=== PATIENT | female | born 1980 | race Caucasian/White ===

== ENCOUNTER 2016-09-22 16:27 | Emergency (ER) | payer OTHER ==
[2016-09-22 16:34] VITALS: BP 113/72; PULSE 94; RESP 20; TEMP 98.1
--- NOTE | 2016-09-22 17:51 | XR ---
EXAMINATION TYPE: XR hand complete RT DATE OF EXAM: 09/22/2016 5:47 PM COMPARISON: NONE HISTORY: Hand through glass window wall opening laceration base of thumb TECHNIQUE: 3 view right hand FINDINGS: No acute osseous abnormality is evident. There is a laceration at the carpal level at the b ase of the thumb. No radiopaque foreign bodies are evident. IMPRESSION: 1. Laceration base carpal level. No radiopaque foreign body evident. 2. Normal osseous structures.
--- NOTE | 2016-09-22 17:58 | ED ---
Wound/Laceration HPI - General Chief Complaint: Wound/Laceration Stated Complaint: Laceration on Right Hand Time Seen by Provider: 09/22/16 17:11 Source: patient, RN notes reviewed, old records reviewed Mode of arrival: ambulatory Limitations: no limitations - History of Present Illness Initial Comments: Physical 36-year-old female with chief complaint of right hand laceration. Patient reports that she was trying to open up her window in the hand got cut on the glass and would from the window. Patient states that her tetanus is up- to-date. Patient states that she is right-handed. She does have full range of motion. Denies any wrist pain or finger pain. Patient denies any recent fever, chills, shortness of breath, chest pain, back pain, abdominal pain, nausea vomiting, numbness or tingling, dysuria or hematuria, constipation or diarrhea, headaches or visual changes, or any other current symptoms - Related Data Home Medications Medication Instructions Recorded Confirmed Fluticasone Propionate [Flonase 1 spray EA NOSTRIL DAILY 09/07/15 09/22/16 Allergy Relief] Ibuprofen [Motrin] 800 mg PO Q8HR PRN 09/07/15 09/22/16 Loratadine [Claritin] 10 mg PO DAILY 09/07/15 09/22/16 Allergies Allergy/AdvReac Type Severity Reaction Status Date / Time No Known Allergies Allergy Verified 09/22/16 18:42 Review of Systems ROS Statement: Those systems with pertinent positive or pertinent negative responses have been documented in the HPI. ROS Other: All systems not noted in ROS Statement are negative. Past Medical History Past Medical History: Seizure Disorder History of Any Multi-Drug Resistant Organisms: None Reported Past Surgical History: Tubal Ligation Past Psychological History: No Psychological Hx Reported Smoking Status: Current every day smoker Past Alcohol Use History: Rare Past Drug Use History: None Reported General Exam - General Exam Comments Initial Comments: This is a 36-year-old female. No acute distress. Limitations: no limitations General appearance: alert, in no apparent distress Head exam: Present: atraumatic, normocephalic, normal inspection Eye exam: Present: normal appearance, PERRL, EOMI. Absent: scleral icterus, conjunctival injection, periorbital swelling ENT exam: Present: normal exam, mucous membranes moist Neck exam: Present: normal inspection. Absent: tenderness, meningismus, lymphadenopathy Respiratory exam: Present: normal lung sounds bilaterally. Absent: respiratory distress, wheezes, rales, rhonchi, stridor Cardiovascular Exam: Present: regular rate, normal rhythm, normal heart sounds. Absent: systolic murmur, diastolic murmur, rubs, gallop, clicks GI/Abdominal exam: Present: soft, normal bowel sounds. Absent: distended, tenderness, guarding, rebound, rigid Extremities exam: Present: normal inspection, full ROM, normal capillary refill. Absent: tenderness, pedal edema, joint swelling, calf tenderness Right Elbow exam: Present: normal inspection, full ROM Forearm Wrist exam: Present: normal inspection, full ROM Hand Wrist exam: Present: full ROM, laceration (4 cm laceration at the base of the hand near the thumb.). Absent: normal inspection Neuro motor exam: Present: wrist extension intact, thumb opposition intact, thumb IP flexion intact, thumb adduction intact, fingers 2-5 abduction intact Vascular: Present: normal capillary refill Back exam: Present: normal inspection Neurological exam: Present: alert, oriented X3, CN II-XII intact Psychiatric exam: Present: normal affect, normal mood Skin exam: Present: warm, dry, intact, normal color. Absent: rash Course Vital Signs 09/22/16 16:32 Temperature 98.1 F Pulse Rate 94 Respiratory 20 Rate Blood Pressure 113/72 O2 Sat by Pulse 99 Oximetry Procedures - Laceration Laceration #1 Indication: laceration Site: hand Size (cm): 5 Description: flap Depth: simple, single layer Anesthetic Used: benzocaine 0.25% Anesthesia Technique: local infiltration, nerve block Amount (mls): 4 Pre-repair: wound explored, irrigated extensively Type of Sutures: nylon Size of Sutures: 5-0 Number of Sutures: 7 Technique: simple, interrupted Patient Tolerated Procedure: well, no complications Medical Decision Making - Medical Decision Making This is a 36-year-old female presenting to emergency Department with chief complaint of right hand laceration of her trying to open a window. Patient's laceration is superficial. No tendon involvement. Patient has full range of motion of the hand. She is right-handed. She reports her tetanus is up-to- date. Patient's hand was soaked and cleaned and soapy water. Patient received sutures, wound was well approximated. Discussed return parameters including signs of infection like redness drainage or swelling. Patient agrees to treatment plan will comply. Also discussed with the patient that she needs to keep the area clean and return to emergency department have her sutures removed in approximately 10 days. Disposition Clinical Impression: Hand laceration Disposition: HOME SELF-CARE Condition: Good Instructions: Laceration (ED) Additional Instructions: Please return to the emergency room in 8-10 days to have sutures removed. Please leave wound covered for the first 24-48 hours and then leave open to air after that time. Please use clean soap and water to clean the suture area to prevent scabbing over the top of your sutures. Please watch for any signs of infection which may include but not limited to increased pain, swelling, redness , fever or chills. Please return to the emergency room if any signs of infection do occur. Please return to the emergency room for any other concerns or complications. Referrals: Roberto Flores MD [Primary Care Provider] - 1-2 days Time of Disposition: 17:57
== END 2016-09-22 18:55 | disposition home or self-care (01) ==
LOC: EC 16:27
DX: S61.411A Laceration without foreign body of right hand, initial encounter (principal); G40.909 Epilepsy, unspecified, not intractable, without status epilepticus; F17.200 Nicotine dependence, unspecified, uncomplicated; Z79.52 Long term (current) use of systemic steroids; Z79.899 Other long term (current) drug therapy; W25.XXXA Contact with sharp glass, initial encounter
CPT/HCPCS: 12002; 99283

== ENCOUNTER → 2017-10-02 | Outpatient (CLI) | payer OTHER ==
--- NOTE | 2017-10-02 10:03 | MR ---
EXAMINATION TYPE: MR lumbar spine wo con DATE OF EXAM: 10/02/2017 COMPARISON: NONE HISTORY: Low back pain TECHNIQUE: Multiplanar, multisequence images of the lumbar spine were acquired. TECHNIQUE: The lumbar spine vertebral bodies maintain normal vertebral body height and alignment. Bone marrow si gnal is within normal limits. Conus medullaris is unremarkable terminating at L1-L2. Paraspinal muscl es are unremarkable. L1-L2: Normal disc appearance without desiccation. No herniation, protrusion or disc bulging. No ca nal stenosis is present. Foramina are patent bilaterally. L2-L3: Normal disc appearance without desiccation. No herniation, protrusion or disc bulging. No ca nal stenosis is present. Foramina are patent bilaterally. L3-L4: Normal disc appearance without desiccation. No herniation, protrusion or disc bulging. No ca nal stenosis is present. Foramina are patent bilaterally. L4-L5: There is small disc bulge is seen as there is flattening of the usual disc concavity posterior ly. No spinal canal stenosis or neural foraminal narrowing. No significant disc desiccation. L5-S1: Normal disc appearance without desiccation. No herniation, protrusion or disc bulging. No ca nal stenosis is present. Foramina are patent bilaterally. IMPRESSION: 1. No evidence of bone marrow edema, fracture, or malalignment of the lumbar spine. 2. No focal disc herniation or spinal canal stenosis. 3. Small disc bulge at L4-L5 without neural foraminal narrowing or spinal canal stenosis.
== END | disposition home or self-care (01) ==
LOC: RADMRIMAIN 08:13
PROVIDERS: ATTEND Psychiatry & Neurology Neurology
DX: M51.26 Other intervertebral disc displacement, lumbar region (principal); Z88.8 Allergy status to other drugs, medicaments and biological substances
CPT/HCPCS: 72148

== ENCOUNTER 2017-11-22 17:32 | Emergency (ER) | payer OTHER ==
[2017-11-22 17:41] VITALS: TEMP 98
--- NOTE | 2017-11-22 18:07 | ED ---
General Adult HPI - General Source: patient, RN notes reviewed Mode of arrival: ambulatory Limitations: no limitations <Aurelia Vincent - Last Filed: 11/22/17 20:50> <Nj Pierre - Last Filed: 11/26/17 17:36> - General Chief complaint: Back Pain/Injury Stated complaint: kidney pain Time Seen by Provider: 11/22/17 17:56 - History of Present Illness Initial comments: This is a 37-year-old female who presents to the emergency department with chief complaint of "kidney pain." Patient states that on Saturday she developed right-sided flank pain and on Saturday it progressed to the left side. Patient states that on Saturday her whole body hurt. She describes the pain as constant and stabbing. Denies any fevers or chills, nausea or vomiting, diarrhea or constipation. Denies any abdominal pain. Denies chest pain or shortness of breath. Denies any recent falls, injury or trauma. Denies dysuria , increased frequency or hematuria. (Aurelia Vincent) - Related Data Home Medications Medication Instructions Recorded Confirmed Ibuprofen [Motrin] 800 mg PO Q8HR PRN 09/07/15 11/22/17 Previous Rx's Medication Instructions Recorded Sulfamethox-Tmp 800-160Mg [Bactrim 1 tab PO Q12HR #28 tab 11/22/17 DS 800-160 mg] Allergies Allergy/AdvReac Type Severity Reaction Status Date / Time Opioids - Morphine Analogues AdvReac Unknown Verified 11/22/17 18:20 Review of Systems ROS Other: All systems not noted in ROS Statement are negative. <Aurelia Vincent - Last Filed: 11/22/17 20:50> ROS Other: All systems not noted in ROS Statement are negative. <Nj Pierre - Last Filed: 11/26/17 17:36> ROS Statement: Those systems with pertinent positive or pertinent negative responses have been documented in the HPI. Past Medical History Past Medical History: Seizure Disorder History of Any Multi-Drug Resistant Organisms: None Reported Past Surgical History: Tubal Ligation Past Psychological History: No Psychological Hx Reported Smoking Status: Current every day smoker Past Alcohol Use History: Rare Past Drug Use History: None Reported <Aurelia Vincent - Last Filed: 07/06/18 20:50> General Exam Limitations: no limitations <Aurelia Vincent - Last Filed: 11/22/17 20:50> <Nj Pierre - Last Filed: 11/26/17 17:36> - General Exam Comments Initial Comments: General: Awake and alert, well-developed; in no apparent distress. HEENT: Head atraumatic, normocephalic. Pupils are equal, round and reactive to light. Extraocular movements intact. Oropharynx moist without erythema or exudate. Neck: Supple. Normal ROM. Cardiovascular: Regular rate and rhythm. No murmurs, rubs or gallops. Chest symmetrical. Respiratory: Lungs clear to auscultation bilaterally. No wheezes, rales or rhonchi. Normal respiratory effort with no use of accessory muscles. Abdomen: Soft, non-tender, non-distended. No rigidity, rebound or guarding. Normal bowel sounds in all 4 quadrants. Bilateral CVA tenderness >right. Musculoskeletal: Normal ROM, no tenderness bilateral upper and lower extremities. Ambulating normally. Skin: [place], warm and dry without rashes or lesions. Neurological: Alert and oriented x3. CN II-XII grossly intact. Speech is fluent and answers are appropriate. No focal neuro deficits. Psychiatric: Normal mood and affect. No overt signs of depression or anxiety noted. (Aurelia Vincent) Vital Signs 11/22/17 11/22/17 17:39 20:18 Temperature 98.0 F Pulse Rate 108 H 91 Respiratory 18 17 Rate Blood Pressure 95/60 109/57 O2 Sat by Pulse 100 100 Oximetry Medical Decision Making - Lab Data Result diagrams: 11/22/17 18:25 11/22/17 18:25 - Radiology Data Radiology results: report reviewed <Aurelia Vincent - Last Filed: 11/22/17 20:50> - Lab Data Result diagrams: 11/22/17 18:25 11/22/17 18:25 <Nj Pierre - Last Filed: 11/26/17 17:36> - Medical Decision Making This is a 37-year-old female who presented to the emergency department with chief complaint of bilateral flank pain. Patient states that she has had "kidney pain" since Saturday. Patient denies fevers or chills, nausea or vomiting , diarrhea or constipation. She denies any abdominal pain. UA revealed positive nitrates, large leukocyte esterase, 129 white blood cells and few white blood cell clumps. Patient will be treated for cystitis. Given a dose of Rocephin in the emergency department. CMP revealed a potassium at 2.9. Patient was given oral supplementation. BUN was elevated at 25 and patient had a creatinine at 1.9. She was given a liter bolus of fluids. Computed tomography scan of the abdomen and pelvis without contrast was obtained and revealed evidence for acute pyelonephritis. Recommended admission for acute kidney injury and IV antibiotics, however patient declines. She states that she wants to be discharged home and will take oral antibiotics. Strict return parameters were discussed including nausea or vomiting, fevers or chills or increase in pain. Patient will be started on Bactrim for the next 14 days. Vital signs are stable and patient is in no acute distress. Patient will be discharged home at this time. All questions answered. (Aurelia Vincent) Resident/PA attestation: I, Dr. Nj Pierre, personally saw and examined the patient. I have reviewed and agree with the resident/PA findings, including all diagnostic interpretations and treatment plans as written unless otherwise stated. I was present for the ruiz portions of any procedures performed and inclusive time noted for any critical care statement. (Nj Pierre) - Lab Data Lab Results 11/22/17 11/22/17 11/22/17 Range/Units 18:25 18:25 18:25 WBC 12.9 H (3.8-10.6) k/uL RBC 3.96 (3.80-5.40) m/uL Hgb 12.1 (11.4-16.0) gm/dL Hct 36.5 (34.0-46.0) % MCV 92.0 (80.0-100.0) fL MCH 30.6 (25.0-35.0) pg MCHC 33.2 (31.0-37.0) g/dL RDW 13.3 (11.5-15.5) % Plt Count 150 (150-450) k/uL Neutrophils % 90 % Lymphocytes % 4 % Monocytes % 4 % Eosinophils % 1 % Basophils % 0 % Neutrophils # 11.6 H (1.3-7.7) k/uL Lymphocytes # 0.5 L (1.0-4.8) k/uL Monocytes # 0.6 (0-1.0) k/uL Eosinophils # 0.1 (0-0.7) k/uL Basophils # 0.0 (0-0.2) k/uL Sodium 140 (137-145) mmol/L Potassium 2.9 L* (3.5-5.1) mmol/L Chloride 103 (98-107) mmol/L Carbon Dioxide 21 L (22-30) mmol/L Anion Gap 16 mmol/L BUN 25 H (7-17) mg/dL Creatinine 1.90 H (0.52-1.04) mg/dL Est GFR (CKD-EPI)AfAm 39 (>60 ml/min/1.73 sqM) Est GFR (CKD-EPI)NonAf 34 (>60 ml/min/1.73 sqM) Glucose 106 H (74-99) mg/dL Calcium 8.7 (8.4-10.2) mg/dL Total Bilirubin 0.7 (0.2-1.3) mg/dL AST 11 L (14-36) U/L ALT 26 (9-52) U/L Alkaline Phosphatase 72 (38-126) U/L Total Protein 5.7 L (6.3-8.2) g/dL Albumin 3.3 L (3.5-5.0) g/dL Urine Color Yellow Urine Appearance Turbid H (Clear) Urine pH 6.0 (5.0-8.0) Ur Specific Hodgen 1.015 (1.001-1.035) Urine Protein 2+ H (Negative) Urine Glucose (UA) Negative (Negative) Urine Ketones Negative (Negative) Urine Blood Small H (Negative) Urine Nitrite Positive H (Negative) Urine Bilirubin Negative (Negative) Urine Urobilinogen 4.0 (<2.0) mg/dL Ur Leukocyte Esterase Large H (Negative) Urine RBC 13 H (0-5) /hpf Urine WBC 129 H (0-5) /hpf Urine WBC Clumps Few H (None) /hpf Ur Squamous Epith Cells 23 H (0-4) /hpf Urine Mucus Occasional H (None) /hpf - Radiology Data CT abdomen and pelvis without contrast impression: The right kidney appears swollen and measures 11 x 5.8 cm. No calculus identified. This could relate to acute pyelonephritis. Normal appendix. There is minimal right-sided perinephric fat stranding as well. Left kidney appears normal. Normal appendix. (Aurelia Vincent) Disposition Is patient prescribed a controlled substance at d/c from ED?: No Time of Disposition: 20:53 <Aurelia Vincent - Last Filed: 11/22/17 20:50> <Nj Pierre - Last Filed: 11/26/17 17:36> Clinical Impression: Pyelonephritis Disposition: HOME SELF-CARE Condition: Good Instructions: Urinary Tract Infection in Women (ED) Additional Instructions: Please take medications as prescribed. Please follow up with primary care provider within 1-2 days. Please return to the emergency department if you develop any fevers or chills, nausea or vomiting or increase in abdominal pain. Return to emergency department if symptoms should worsen or any concerns arise. Prescriptions: Sulfamethox-Tmp 800-160Mg [Bactrim DS 800-160 mg] 1 tab PO Q12HR #28 tab Referrals: Roberto Flores MD [Primary Care Provider] - 1-2 days
[2017-11-22 18:34] LABS: Basophils % (A) 0 %; Eosinophils # (A) 0.1 k/uL (0-0.7); Eosinophils % (A) 1 %; HCT 36.5 % (34.0-46.0); HGB 12.1 gm/dL (11.4-16.0); Lymphocytes # (A) 0.5 k/uL (1.0-4.8); Lymphocytes % (A) 4 %; MCH 30.6 pg (25.0-35.0); MCHC 33.2 g/dL (31.0-37.0); Mean Platelet Volume 8.7; Monocytes # (A) 0.6 k/uL (0-1.0); Monocytes % (A) 4 %; Neutrophils # (A) 11.6 k/uL (1.3-7.7); Neutrophils % (A) 90 %; Platelet Count 150 k/uL (150-450); RBC 3.96 m/uL (3.80-5.40); RDW 13.3 % (11.5-15.5); WBC 12.9 k/uL (3.8-10.6)
[2017-11-22 18:37] LABS: Appearance,Urine Turbid (Clear); Bilirubin,Urine Negative (Negative); Blood,Urine Small (Negative); Color,Urine Yellow; Glucose,Urine (UA) Negative (Negative); Ketones,Urine Negative (Negative); Leukocyte Esterase,Urine Large (Negative); Mucus,Urine Occasional /hpf; Nitrite,Urine Positive (Negative); Protein,Urine 2+ (Negative); RBC,Urine 13 /hpf (0-5); Specific Gravity,Urine 1.015 (1.001-1.035); Squamous Epithelial Cell,Urine 23 /hpf (0-4); WBC,Urine 129 /hpf (0-5)
[2017-11-22] MEDS ORDERED: cefTRIAXone 1,000 MG VIAL (IM USE) IM STA (18:40)
[2017-11-22 18:43] LABS: Albumin 3.3 g/dL (3.5-5.0); Calcium 8.7 mg/dL (8.4-10.2); Total Bilirubin 0.7 mg/dL (0.2-1.3); Total Protein 5.7 g/dL (6.3-8.2)
[2017-11-22 18:47] LABS: Potassium 2.9 mmol/L (3.5-5.1)
[2017-11-22] MEDS ORDERED: SODIUM CHLORIDE 0.9% 1,000 ML IV STA (18:50)
[2017-11-22] MEDS ORDERED: cefTRIAXone IN SWFI 1,000 MG/10 ML SYRINGE IVP STA (18:50)
[2017-11-22] MEDS ORDERED: POTASSIUM CHLORIDE ER 20 MEQ TAB.ER PO STA (18:52)
--- NOTE | 2017-11-22 20:00 | CT ---
EXAMINATION TYPE: CT abdomen pelvis wo con DATE OF EXAM: 11/22/2017 COMPARISON: HISTORY: Bilateral flank pain CT DLP: 298.7 mGycm Automated exposure control for dose reduction was used. TECHNIQUE: Helical acquisition of images was performed from the lung bases through the pelvis. FINDINGS: Lung bases are clear of infiltrate. There is no pleural effusion. Heart size is normal. Liver spleen pancreas gallbladder appear normal. Bile ducts are not dilated. There is no adrenal mass. Right kidney appears enlarged. There is mild edema at the right renal hilum . There is no retroperitoneal adenopathy. Ureters are not dilated. I see no ureteral calculus. There ar e vascular calcifications in the pelvis. There are clips apparently from tubal ligation. Uterus is an teverted. Bladder distends smoothly. Lumbar spine appears intact. There is no free fluid in the pelvi s. Appendix appears normal. I see no intestinal wall thickening. There are no dilated loops. IMPRESSION: THE RIGHT KIDNEY APPEARS SWOLLEN AND MEASURES 11 X 5.8 CM. NO CALCULUS IDENTIFIED. THIS COULD RELATE TO ACUTE PYELONEPHRITIS. NORMAL APPENDIX. THERE IS MINIMAL RIGHT-SIDED PERINEPHRIC FAT STRANDING W ELL. LEFT KIDNEY APPEARS NORMAL. NORMAL APPENDIX.
[2017-11-22 20:20] VITALS: BP 109/57; PULSE 91; RESP 17
== END 2017-11-22 21:34 | disposition home or self-care (01) ==
LOC: EC 17:32
DX: N10 Acute pyelonephritis (principal); F17.200 Nicotine dependence, unspecified, uncomplicated; Z88.5 Allergy status to narcotic agent; Z53.8 Procedure and treatment not carried out for other reasons
CPT/HCPCS: 99284; 96374; 96361; 36415; 80053; 85025; 81001; 74176; J0696

== ENCOUNTER → 2018-07-08 | Outpatient (CLI) | payer OTHER ==
--- NOTE | 2018-07-09 09:47 | MR ---
EXAMINATION TYPE: MR shoulder RT wo con DATE OF EXAM: 07/08/2018 COMPARISON: None HISTORY: Rt shoulder pain, numbness, tingling; no trauma/surgery TECHNIQUE: Multiplanar, multisequence imaging of the right shoulder is performed without contrast. FINDINGS: Rotator Cuff: Rotator cuff tendons appear intact. No retraction or significant disruption is evident. A small perforation may be difficult to exclude. No significant joint fluid is present. Acromioclavicular Joint: Mild acromioclavicular joint hypertrophy is present predominantly spurring u pwards. Some mild downward spurring is present which could contribute to impingement syndrome. Glenohumeral Joint: Normal. Labrum: The labrum appears grossly intact given limitation of non-arthrogram study. Biceps Tendon: The long head of biceps is in normal location within bicipital groove. Bone marrow signal: Subchondral cyst may be near the posterior insertion site of the supraspinatus te ndon. Other: No additional significant abnormality is appreciated. IMPRESSION: Mild tendinosis may be present. No tear or perforation is identified. Small perforation may be diffic ult to identify given no significant joint effusion at time of this examination. Subchondral cyst for mation insertion site of the supraspinatus tendon has been associated with perforation.
== END | disposition home or self-care (01) ==
LOC: RADMRIMAIN 16:42
PROVIDERS: ATTEND Family Medicine
DX: M85.611 Other cyst of bone, right shoulder (principal)

== ENCOUNTER → 2018-08-05 | Outpatient (CLI) | payer OTHER ==
--- NOTE | 2018-08-05 16:14 | CONS ---
CONSULTATION REASON FOR CONSULTATION: Sleep apnea. This patient is a 38-year-old female patient with known history of epilepsy, under the care of Dr. Tapia. The patient was referred to me for sleep apnea evaluation. The patient is feeling somnolent and sleepy during the day, and this is a chronic problem. It has been going on for the past 10 to 12 years. She has been diagnosed having epilepsy at a very young age, initially treated with Tegretol, and over the past 10 to 12 years the patient was receiving Depakote. Recently she was switched to Trokendi 200 mg once a day. Her seizures seem to be pretty much controlled for now. She goes to bed between midnight and 1 a.m. and she gets out of bed at 7 a.m. in the morning, averaging about 6 hours of sleep. She feels tired and sleepy during the day. Her [place] score is 15. The patient lives alone, and we are not sure if she has a history of snoring or witnessed apneas. She sleeps solidly and she does not wake up for nocturia, grinding or any other episodes of choking or gasping. No sleepwalking. No sleeptalking. No restlessness in the lower extremities. She does not drive a car due to her history of epilepsy and she does not fall asleep during day-to-day activities, as the patient works at [employer] in [place]. No head trauma. She has a positive family history of sleep apnea in her mother. No history of substance abuse. No history of alcoholism. She has chronic sinus allergies and she is a nose breather. PAST MEDICAL HISTORY: 1. Chronic sinus allergies with environmental allergies towards mold, grass, dust and pollen. 2. Seizure disorder/epilepsy. DRUG ALLERGIES: NOT KNOWN. OUTPATIENT MEDICATION LIST: Includes: 1. Trokani 200 mg p.o. daily. 2. Motrin 800 on a p.r.n. basis. SURGICAL HISTORY: Tubal ligation. SOCIAL HISTORY: The patient smokes cigarettes, one pack of cigarettes a day. No history of alcoholism. No history of IV drugs. Mother has STEPHANIE and daughter has asthma. REVIEW OF SYSTEMS: Twelve-point review of systems was done. No recent weight gain or weight loss. No fever, chills or night sweats. No head trauma. No difficulties with memory or concentration. No history of depression or anxiety. No claustrophobia. No grinding of the teeth. No restlessness in the lower extremities. No sleepwalking or sleeptalking. No sweating. No anxiety. No panic attacks. No palpitation. No heartburn. No nocturnal shortness of breath, cough or chest pain. No history of any insomnia. She sleeps on her stomach and side. She does not take any naps during the day. No recent weight gain. No history of excessive utilization of caffeinated products. No episodes of sleep paralysis, hallucinations or cataplexy. PHYSICAL EXAMINATION: BP is 108/72, pulse 71, respirations 16, temperature 98.1, saturation 98% on room air. Height is 5 feet 4 inches. Weight is 141. BMI is 27.5. [place] Score is 15. Neck size is 15-1/2. GENERAL APPEARANCE: Calm, comfortable. HEAD: Atraumatic, normocephalic. Neck is short, supple. Crowding of the posterior pharynx. Mallampati class II. Very poor dental hygiene and multiple decayed teeth in the upper jaw. LUNGS: Clear to auscultation. Heart sounds are regular rate and rhythm. Normal S1, S2. No S3, S4. No murmurs. ABDOMEN: Soft, nontender. No organomegaly. EXTREMITIES: No edema. No cyanosis or clubbing. NEUROLOGIC: Alert and oriented x3. No focal neurological deficits. Psychiatrically the patient has no anxiety or depression at this point in time. SKIN: Negative for any wounds or ulceration. IMPRESSION: 1. Hypersomnia; [place] score of 15. Currently under investigation. Rule out obstructive sleep apnea. Rule out seizures. 2. History of epilepsy, currently on Trokani for seizure control. The patient has used Depakote in the past and prior to that she was on Tegretol. 3. Chronic environmental allergies. PLAN: Proceed with a screening polysomnogram. This will be needed to look for any significant sleep breathing disorder. This will be also an opportunity to see if this patient is having any nocturnal seizure activity. We will continue to follow and make further recommendations based on the results of the sleep study. MMODL / IJN: [id number] /
== END | disposition home or self-care (01) ==
LOC: SLEEP 13:42
PROVIDERS: ATTEND Internal Medicine Critical Care Medicine
DX: G47.10 Hypersomnia, unspecified (principal); G40.909 Epilepsy, unspecified, not intractable, without status epilepticus; T78.40XA Allergy, unspecified, initial encounter; F17.210 Nicotine dependence, cigarettes, uncomplicated; Z79.899 Other long term (current) drug therapy
CPT/HCPCS: 99211

== ENCOUNTER → 2018-10-20 | Outpatient (CLI) | payer OTHER ==
[2018-10-20 13:24] LABS: Basophils % (A) 0 %; Eosinophils # (A) 0.2 k/uL (0-0.7); Eosinophils % (A) 2 %; HCT 41.3 % (34.0-46.0); HGB 13.2 gm/dL (11.4-16.0); Lymphocytes # (A) 1.4 k/uL (1.0-4.8); Lymphocytes % (A) 15 %; MCHC 31.8 g/dL (31.0-37.0); MCV 91.2 fL (80.0-100.0); Mean Platelet Volume 8.7; Monocytes # (A) 0.3 k/uL (0-1.0); Monocytes % (A) 3 %; Neutrophils # (A) 7.2 k/uL (1.3-7.7); Neutrophils % (A) 78 %; Platelet Count 177 k/uL (150-450); RBC 4.54 m/uL (3.80-5.40); RDW 13.8 % (11.5-15.5); WBC 9.1 k/uL (3.8-10.6)
[2018-10-20 18:45] LABS: Vitamin D 25 Hydroxy 13.6 ng/mL (30.0-100.0)
== END | disposition home or self-care (01) ==
LOC: LABWHC1 12:18
PROVIDERS: ATTEND Nurse Practitioner Family
DX: R53.83 Other fatigue (principal)
CPT/HCPCS: 36415; 82306; 82607; 84207; 84439; 84443; 84481; 85025

== ENCOUNTER → 2019-04-20 | Outpatient (CLI) | payer OTHER ==
--- NOTE | 2019-04-20 08:25 | MM ---
Reason for exam: screening (asymptomatic). Baseline mammogram. History: Taking hormonal contraceptives for 3 months beginning at age 38. Physical Findings: Nurse did not find any significant physical abnormalities on exam. MG Screening Mammo w CAD Bilateral CC and MLO view(s) were taken. The breast tissue is extremely dense which could obscure a lesion on mammography. There are benign appearing round calcifications bilaterally. There is no discrete abnormality. These results were verbally communicated with the patient and result sheet given to the patient on 04/20/19. ASSESSMENT: Benign, BI-RAD 2 RECOMMENDATION: Routine screening mammogram of both breasts at age 42.
== END | disposition home or self-care (01) ==
LOC: RADMAMWWP 07:41
PROVIDERS: ATTEND Family Medicine
DX: Z12.31 Encounter for screening mammogram for malignant neoplasm of breast (principal)
CPT/HCPCS: 77067

== ENCOUNTER → 2021-01-31 | Outpatient (CLI) | payer OTHER ==
--- NOTE | 2021-01-31 19:49 | XR ---
EXAMINATION TYPE: XR chest 2V DATE OF EXAM: 01/31/2021 COMPARISON: None HISTORY: 40-year-old female B3 4.9, viral infection TECHNIQUE: PA and lateral views FINDINGS: The cardiomediastinal silhouette, aorta, and pulmonary vasculature are within normal limits. Lungs an d pleural spaces are clear. IMPRESSION: No acute cardiopulmonary process.
== END | disposition home or self-care (01) ==
LOC: LABWHC1 15:04
PROVIDERS: ATTEND Family Medicine
DX: B34.9 Viral infection, unspecified (principal)
CPT/HCPCS: 87502; 71046; U0003; C9803

== ENCOUNTER → 2021-07-14 | Outpatient (CLI) | payer OTHER ==
[2021-07-15 13:12] LABS: Coronavirus SARS CoV-2 Not Detected (Not Detected)
== END | disposition home or self-care (01) ==
LOC: LABWHC1 13:29
PROVIDERS: ATTEND Family Medicine
DX: J06.9 Acute upper respiratory infection, unspecified (principal)
CPT/HCPCS: 87502; U0003; C9803; U0005

== ENCOUNTER → 2021-12-14 | Outpatient (CLI) | payer OTHER ==
[2021-12-14 18:24] LABS: Basophils # (A) 0.02 X 10*3/uL (0.00-0.10); Basophils % (A) 0.4 %; Eosinophils # (A) 0.11 X 10*3/uL (0.04-0.35); Eosinophils % (A) 2.1 %; HGB 10.9 g/dL (12.0-15.0); Immature Grans, Automated 0.2 %; Lymphocytes # (A) 1.21 X 10*3/uL (0.90-5.00); Lymphocytes % (A) 23.4 %; MCH 29.4 pg (27.0-32.0); MCHC 31.1 g/dL (32.0-37.0); MCV 94.3 fL (80.0-97.0); Mean Platelet Volume 11.3 fL (9.5-12.2); Monocytes # (A) 0.28 X 10*3/uL (0.20-1.00); Monocytes % (A) 5.4 %; NRBC Per 100 WBC 0 /100 WBCS (0.0-0.0); Neutrophils # (A) 3.53 X 10*3/uL (1.80-7.70); Neutrophils % (A) 68.5 %; Platelet Count 201 X 10*3/uL (140-440); RBC 3.71 X 10*6/uL (4.10-5.20); RDW 12.5 % (11.5-14.5); WBC 5.16 X 10*3/uL (4.50-10.00)
[2021-12-14 18:51] LABS: ALT 11 U/L (8-44); AST 20 U/L (13-35); African American GFR (CKD) 93.4 (60.0-200.0); Albumin 3.8 g/dL (3.8-4.9); Albumin/Globulin Ratio 1.75 (1.60-3.17); Alkaline Phosphatase 41 U/L (41-126); Blood Urea Nitrogen 13.5 mg/dL (9.0-27.0); Calcium 8.3 mg/dL (8.7-10.3); Carbon Dioxide 15.9 mmol/L (20.0-27.5); Chloride 109 mmol/L (96-109); Chol/HDL Ratio 3.69 Ratio; Globulin 2.2 g/dL (1.6-3.3); Glucose 86 mg/dL (70-110); LDL Cholesterol,Calculated 67.3 mg/dL (0.0-131.0); Non-African American GFR(CKD) 80.5 (60.0-200.0); Potassium 3.7 mmol/L (3.5-5.5); Sodium 139 mmol/L (135-145); Total Bilirubin <0.15 mg/dL (0.30-1.20); VLDL Calculation 15.12 mg/dL (5.00-40.00)
== END | disposition home or self-care (01) ==
LOC: LABWHC1 11:42
PROVIDERS: ATTEND Psychiatry & Neurology Neurology
DX: Z00.00 Encounter for general adult medical examination without abnormal findings (principal); Z11.59 Encounter for screening for other viral diseases; H53.2 Diplopia
CPT/HCPCS: 36415; 80053; 80061; 83519; 84443; 85025; 86803

== ENCOUNTER → 2022-01-25 | Outpatient (CLI) | payer OTHER ==
[2022-01-25 17:53] LABS: Basophils # (A) 0.04 X 10*3/uL (0.00-0.10); Basophils % (A) 0.6 %; Eosinophils # (A) 0.06 X 10*3/uL (0.04-0.35); Eosinophils % (A) 0.9 %; HCT 41.7 % (37.2-46.3); HGB 13.4 g/dL (12.0-15.0); Immature Grans, Automated 0.3 %; Lymphocytes # (A) 1.99 X 10*3/uL (0.90-5.00); Lymphocytes % (A) 28.5 %; MCH 30.2 pg (27.0-32.0); MCHC 32.1 g/dL (32.0-37.0); MCV 93.9 fL (80.0-97.0); Mean Platelet Volume 11.1 fL (9.5-12.2); Monocytes # (A) 0.41 X 10*3/uL (0.20-1.00); Monocytes % (A) 5.9 %; NRBC Per 100 WBC 0 /100 WBCS (0.0-0.0); Neutrophils # (A) 4.46 X 10*3/uL (1.80-7.70); Neutrophils % (A) 63.8 %; Platelet Count 195 X 10*3/uL (140-440); RBC 4.44 X 10*6/uL (4.10-5.20); RDW 12.4 % (11.5-14.5); WBC 6.98 X 10*3/uL (4.50-10.00)
[2022-01-25 19:15] LABS: % Iron Saturation 24.69 (12.00-45.00); Ferritin 43.4 ng/mL (10.0-291.0)
== END | disposition home or self-care (01) ==
LOC: LABWHC1 11:40
PROVIDERS: ATTEND Family Medicine
DX: D64.9 Anemia, unspecified (principal)
CPT/HCPCS: 36415; 82607; 82728; 82747; 83540; 83550; 85025

== ENCOUNTER 2022-08-28 21:44 | Emergency (ER) | payer OTHER ==
--- NOTE | 2022-08-28 22:07 | ED ---
General Adult HPI - General Stated complaint: left side pain Time Seen by Provider: 08/28/22 22:07 Source: RN notes reviewed - History of Present Illness Initial comments: female with no significant past medical history presents to the emergency department with left flank pain that started approximately 9:30 PM. She denies any fever, chills. She doesn't take anything for his symptoms. Vital signs stable upon initial evaluation. Patient eloped prior to completion of care and room assignment AGAINST MEDICAL ADVICE. - Related Data Home Medications Medication Instructions Recorded Confirmed Ibuprofen [Motrin] 800 mg PO Q8HR PRN 09/07/15 11/22/17 Previous Rx's Medication Instructions Recorded Sulfamethox-Tmp 800-160Mg [Bactrim 1 tab PO Q12HR #28 tab 11/22/17 DS 800-160 mg] Allergies Allergy/AdvReac Type Severity Reaction Status Date / Time hydromorphone [From Dilaudid] Allergy seizures Verified 08/28/22 22:09 Opioids - Morphine Analogues AdvReac Unknown Verified 11/22/17 18:20 Review of Systems ROS Statement: Those systems with pertinent positive or pertinent negative responses have been documented in the HPI. ROS Other: All systems not noted in ROS Statement are negative. Past Medical History Past Medical History: Seizure Disorder History of Any Multi-Drug Resistant Organisms: None Reported Past Surgical History: Tubal Ligation Past Psychological History: No Psychological Hx Reported Past Alcohol Use History: Rare Past Drug Use History: None Reported General Exam - General Exam Comments Initial Comments: Visual Physical Exam Vital signs reviewed General: Well-appearing, nontoxic, no acute distress. Head: Normocephalic, atraumatic Eyes: PERRLA, EOMI ENT: Airway patent Chest: Nonlabored breathing Skin: No visual rash, normal skin tone Neuro: Alert and oriented 3 Musculoskeletal: No gross abnormalities Course Vital Signs 08/28/22 22:06 Temperature 97.7 F Pulse Rate 69 Respiratory 20 Rate Blood Pressure 105/79 O2 Sat by Pulse 99 Oximetry Medical Decision Making - Lab Data Result diagrams: 08/28/22 22:49 08/28/22 22:49 Lab Results 08/28/22 08/28/22 08/28/22 Range/Units 22:49 22:49 23:15 WBC 6.2 (3.8-10.6) k/uL RBC 4.27 (3.80-5.40) m/uL Hgb 12.8 (11.4-16.0) gm/dL Hct 38.2 (34.0-46.0) % MCV 89.5 (80.0-100.0) fL MCH 30.0 (25.0-35.0) pg MCHC 33.6 (31.0-37.0) g/dL RDW 12.9 (11.5-15.5) % Plt Count 246 (150-450) k/uL MPV 8.7 Neutrophils % 58 % Lymphocytes % 33 % Monocytes % 5 % Eosinophils % 2 % Basophils % 1 % Neutrophils # 3.6 (1.3-7.7) k/uL Lymphocytes # 2.0 (1.0-4.8) k/uL Monocytes # 0.3 (0-1.0) k/uL Eosinophils # 0.1 (0-0.7) k/uL Basophils # 0.0 (0-0.2) k/uL Sodium 138 (137-145) mmol/L Potassium 4.4 (3.5-5.1) mmol/L Chloride 110 H (98-107) mmol/L Carbon Dioxide 18 L (22-30) mmol/L Anion Gap 10 mmol/L BUN 18 H (7-17) mg/dL Creatinine 1.01 (0.52-1.04) mg/dL Est GFR (CKD-EPI)AfAm 81 (>60 ml/min/1.73 sqM) Est GFR (CKD-EPI)NonAf 70 (>60 ml/min/1.73 sqM) Glucose 103 H (74-99) mg/dL Calcium 8.8 (8.4-10.2) mg/dL Total Bilirubin 0.4 (0.2-1.3) mg/dL AST 23 (14-36) U/L ALT 21 (4-34) U/L Alkaline Phosphatase 44 (38-126) U/L Total Protein 6.6 (6.3-8.2) g/dL Albumin 4.0 (3.5-5.0) g/dL Urine Color Light Red Urine Appearance Cloudy H (Clear) Urine pH 5.5 (5.0-8.0) Ur Specific [place] 1.019 (1.001-1.035) Urine Protein Trace H (Negative) Urine Glucose (UA) Negative (Negative) Urine Ketones Negative (Negative) Urine Blood Large H (Negative) Urine Nitrite Negative (Negative) Urine Bilirubin Negative (Negative) Urine Urobilinogen <2.0 (<2.0) mg/dL Ur Leukocyte Esterase Moderate H (Negative) Urine RBC >182 H (0-5) /hpf Urine WBC 8 H (0-5) /hpf Ur Squamous Epith Cells 8 H (0-4) /hpf Urine Bacteria Moderate H (None) /hpf Urine Mucus Rare H (None) /hpf Urine Yeast (Budding) Many H (None) /hpf Disposition Clinical Impression: Abdominal pain Disposition: Left Against Medical Advice Condition: Undetermined Referrals: Roberto Flores MD [Primary Care Provider] - 1-2 days Time of Disposition: 11:21
[2022-08-28 22:08] VITALS: BP 105/79; PULSE 69; RESP 20; TEMP 97.7
[2022-08-28 23:01] LABS: Basophils % (A) 1 %; Eosinophils # (A) 0.1 k/uL (0-0.7); Eosinophils % (A) 2 %; HCT 38.2 % (34.0-46.0); HGB 12.8 gm/dL (11.4-16.0); Lymphocytes % (A) 33 %; MCHC 33.6 g/dL (31.0-37.0); MCV 89.5 fL (80.0-100.0); Mean Platelet Volume 8.7; Monocytes # (A) 0.3 k/uL (0-1.0); Monocytes % (A) 5 %; Neutrophils # (A) 3.6 k/uL (1.3-7.7); Neutrophils % (A) 58 %; Platelet Count 246 k/uL (150-450); RBC 4.27 m/uL (3.80-5.40); RDW 12.9 % (11.5-15.5); WBC 6.2 k/uL (3.8-10.6)
[2022-08-28 23:29] LABS: Calcium 8.8 mg/dL (8.4-10.2); Potassium 4.4 mmol/L (3.5-5.1); Total Bilirubin 0.4 mg/dL (0.2-1.3); Total Protein 6.6 g/dL (6.3-8.2)
[2022-08-29 00:10] LABS: Appearance,Urine Cloudy (Clear); Bacteria,Urine Moderate /hpf; Bilirubin,Urine Negative (Negative); Blood,Urine Large (Negative); Budding Yeast,Urine Many /hpf; Color,Urine Light Red; Glucose,Urine (UA) Negative (Negative); Ketones,Urine Negative (Negative); Leukocyte Esterase,Urine Moderate (Negative); Mucus,Urine Rare /hpf; Nitrite,Urine Negative (Negative); PH, Urine 5.5 (5.0-8.0); Protein,Urine Trace (Negative); RBC,Urine >182 /hpf (0-5); Specific Gravity,Urine 1.019 (1.001-1.035); Squamous Epithelial Cell,Urine 8 /hpf (0-4); Urobilinogen,Urine <2.0 mg/dL (<2.0); WBC,Urine 8 /hpf (0-5)
== END 2022-08-29 00:01 | disposition left against medical advice (07) ==
LOC: EC 21:44
DX: R10.9 Unspecified abdominal pain (principal); Z53.29 Procedure and treatment not carried out because of patient's decision for other reasons; Z88.8 Allergy status to other drugs, medicaments and biological substances; Z98.51 Tubal ligation status
CPT/HCPCS: 36415; 80053; 81001; 85025; 99283

== ENCOUNTER → 2022-10-02 | Outpatient (CLI) | payer OTHER ==
[2022-10-02 19:29] LABS: HIV 2 AB Non-Reactive (Non-Reactive); HIV AB P24 Non-Reactive (Non-Reactive); HIV P24 AG Non-Reactive (Non-Reactive)
== END | disposition home or self-care (01) ==
LOC: LABWHC1 10:20
PROVIDERS: ATTEND Family Medicine
DX: Z11.4 Encounter for screening for human immunodeficiency virus [HIV] (principal)
CPT/HCPCS: 36415; 87390

== ENCOUNTER → 2022-10-09 | Outpatient (CLI) | payer OTHER ==
--- NOTE | 2022-10-10 08:33 | MM ---
Reason for Exam: Screening (asymptomatic). Last mammogram was performed 3 year(s) and 5 month(s) ago. Patient History: Menarche at age 10. First Full-Term at age 20. Currently using Hormonal Contraceptives, for 3 months. Last menstrual period: 09/09/2022 Risk Values: Mallorie 5 year model risk: 0.4%. NCI Lifetime model risk: 8.0%. Prior Study Comparison: 04/20/2019 Bilateral Screening Mammogram, [facility]. Tissue Density: The breast tissue is extremely dense which could obscure a lesion on mammography. Findings: Analyzed By CAD. There is no suspicious group of microcalcifications or new suspicious mass in either breast. Overall Assessment: Negative, BI-RAD 1 Management: Screening Mammogram of both breasts in [address] [facility] will attempt to contact patient to return for supplemental views and ultrasound if indicated. Patient should continue monthly self-breast exams. A clinical breast exam by your physician is recommended on an annual basis. This exam should not preclude additional follow-up of suspicious palpable abnormalities. Note on Mallorie scores and lifetime risk: 1. A Mallorie score greater than 3% is considered moderate risk. If this is the case, consider specialist referral to assess eligibility for a risk reducing agent. 2. If overall lifetime risk for the development of breast cancer is 20% or higher, the patient may qualify for future screening with alternating mammogram and breast MRI. Electronically signed and approved by: Venancio Coyne DO
== END | disposition home or self-care (01) ==
LOC: RADMAMWWP 07:04
PROVIDERS: ATTEND Family Medicine
DX: Z12.31 Encounter for screening mammogram for malignant neoplasm of breast (principal)
CPT/HCPCS: 77063; 77067

== ENCOUNTER → 2023-04-25 | Outpatient (CLI) | payer OTHER ==
--- NOTE | 2023-04-25 15:15 | US ---
EXAMINATION TYPE: US thyroid st tissue head/neck DATE OF EXAM: 04/25/2023 COMPARISON: NONE CLINICAL INDICATION: Female, 42 years old with history of R09.89 OTH SYMPTOMS AND SIGNS INVOLVING TH E CIRC; Pt states lump felt in throat while swallowing after vagus nerve stimulator was placed 2 week s ago. Bilateral neck scanned, no evidence of lymphadenopathy. Incidental finding of sub-centimeter nodule r ight lobe of thyroid= 0.4 cm. Probable vagus nerve stimulator left lateral neck visualized= 1.2 x 0.9 x 0.8 cm at scar. No abnormality appreciated to account for pt's symptoms. IMPRESSION: No evidence for adenopathy about the neck. Subcentimeter thyroid nodule is nonspecific.
== END | disposition home or self-care (01) ==
LOC: RADUSWWP 14:44
PROVIDERS: ATTEND Family Medicine
DX: E04.1 Nontoxic single thyroid nodule (principal); R09.89 Other specified symptoms and signs involving the circulatory and respiratory systems
CPT/HCPCS: 76536

== ENCOUNTER → 2023-10-23 | Outpatient (CLI) | payer OTHER ==
--- NOTE | 2023-10-24 21:00 | MM ---
Reason for Exam: Screening (asymptomatic). Last mammogram was performed 1 year(s) and 1 month(s) ago. Patient History: Menarche at age 10. First Full-Term at age 20. Hormonal Contraceptives for 3 months starting at age 38. Last menstrual period: 10/12/2023 Risk Values: Mallorie 5 year model risk: 0.5%. NCI Lifetime model risk: 8.0%. Prior Study Comparison: 04/20/2019 Bilateral Screening Mammogram, [facility]. 10/09/2022 Bilateral MG 3D screening mammo w/cad, [facility]. Tissue Density: The breasts are heterogeneously dense, which may obscure small masses. Findings: Analyzed By CAD. Generator device on the left. Areas of asymmetric density are unchanged. There is no suspicious group of microcalcifications or new suspicious mass in either breast. Overall Assessment: Benign, BI-RAD 2 Management: Screening Mammogram of both breasts in 1 year. . Patient should continue monthly self-breast exams. A clinical breast exam by your physician is recommended on an annual basis. This exam should not preclude additional follow-up of suspicious palpable abnormalities. Note on Mallorie scores and lifetime risk: 1. A Mallorie score greater than 3% is considered moderate risk. If this is the case, consider specialist referral to assess eligibility for a risk reducing agent. 2. If overall lifetime risk for the development of breast cancer is 20% or higher, the patient may qualify for future screening with alternating mammogram and breast MRI. Electronically signed and approved by: Nick Andersen M.D. Radiologist
== END | disposition home or self-care (01) ==
LOC: RADMAMWWP 10:46
PROVIDERS: ATTEND Family Medicine
DX: Z12.31 Encounter for screening mammogram for malignant neoplasm of breast (principal)
CPT/HCPCS: 77063; 77067

== ENCOUNTER → 2024-04-29 | Outpatient (CLI) | payer OTHER ==
[2024-04-29 15:55] LABS: Basophils # (A) 0.03 X 10*3/uL (0.00-0.10); Basophils % (A) 0.6 %; Eosinophils # (A) 0.11 X 10*3/uL (0.04-0.35); Eosinophils % (A) 2.1 %; HCT 41.8 % (37.2-46.3); Lymphocytes % (A) 22.6 %; MCH 28.8 pg (27.0-32.0); MCHC 31.1 g/dL (32.0-37.0); MCV 92.7 FL (80.0-97.0); Mean Platelet Volume 12.1 FL (9.5-12.2); Monocytes # (A) 0.27 X 10*3/uL (0.20-1.00); Monocytes % (A) 5.1 %; NRBC Per 100 WBC 0 X 10*3/uL (0.00-0.01); Neutrophils % (A) 69.4 %; Platelet Count 188 X 10*3/uL (140-440); RBC 4.51 X 10*6/uL (4.10-5.20); RDW 12.6 % (11.5-14.5); WBC 5.32 X 10*3/uL (4.50-10.00)
[2024-04-29 16:27] LABS: ALT 11 U/L (8-44); AST 14 U/L (13-35); Albumin 4.3 g/dL (3.8-4.9); Albumin/Globulin Ratio 1.95 Ratio (1.60-3.17); Alkaline Phosphatase 52 U/L (41-126); BUN/Creat Ratio 15.33 Ratio (12.00-20.00); Blood Urea Nitrogen 13.8 mg/dL (9.0-27.0); Calcium 8.6 mg/dL (8.7-10.3); Chloride 111 mmol/L (96-109); Chol/HDL Ratio 4.43 Ratio; Globulin 2.2 g/dL (1.6-3.3); Glucose 87 mg/dL (70-110); LDL Cholesterol,Calculated 115.7 mg/dL (0.0-131.0); Magnesium 2.1 mg/dL (1.5-2.4); Potassium 3.8 mmol/L (3.5-5.5); Sodium 139 mmol/L (135-145); Total Bilirubin 0.4 mg/dL (0.3-1.2); Total Protein 6.5 g/dL (6.2-8.2); VLDL Calculation 16.66 mg/dL (5.00-40.00)
[2024-04-29 16:41] LABS: Luteinizing Hormone 5.6 mIU/mL
== END | disposition home or self-care (01) ==
LOC: LABWHC1 09:40
PROVIDERS: ATTEND Nurse Practitioner Family
DX: G43.909 Migraine, unspecified, not intractable, without status migrainosus (principal); E78.5 Hyperlipidemia, unspecified; N92.0 Excessive and frequent menstruation with regular cycle; R79.9 Abnormal finding of blood chemistry, unspecified
CPT/HCPCS: 36415; 80053; 80061; 82040; 82306; 82670; 83001; 83002; 83036; 83735; 84144; 84270; 84403; 84443; 85025